=== PATIENT | female | born 1990 | race Caucasian/White ===

== ENCOUNTER 2024-01-30 12:12 | Inpatient (IN) | payer OTHER ==
[2024-01-30] MEDS: LACTATED RINGERS 1,000 ML IV SCH (15:59)
--- NOTE | 2024-01-30 16:12 | P.HPOB ---
History of Present Illness H&P Date: 01/30/24 Chief Complaint: preeclampsia withouth severe features Ms. Smith is a 33 year old at 39 weeks and 1 day with EDC of 02/05/24 by LMP c/w 10 week US who was sent from the office with elevated blood pressure. She has been followed outpatient for elevated blood pressures at her 36 and 37 week appointments. She has also been undergoing weekly surveillance with non- stress tests. Today in the office her pressure was 140/80. PIH labs in triage were within normal limits except a urine protein to creatinine ratio of 0.5. The fetus is estimated to be 8 lbs (65%ile) based on a 36 week US. work-up: blood type O positive, antibody negative, rubella immune, VDRL non-reactive, HBsAg negative, HIV negative, HCV Ab non-reactive, gonorrhea negative, chlamydia negative, 1 hour GTt wnl, GBS negative. Past Medical History Past Medical History: No Reported History History of Any Multi-Drug Resistant Organisms: None Reported Additional Past Surgical History / Comment(s): [place] teeth Past Anesthesia/Blood Transfusion Reactions: No Reported Reaction Past Psychological History: No Psychological Hx Reported Smoking Status: Never smoker - Past Family History Father Family Medical History: No Reported History Medications and Allergies Home Medications Medication Instructions Recorded Confirmed Type No Known Home Medications 01/30/24 01/30/24 History Allergies Allergy/AdvReac Type Severity Reaction Status Date / Time No Known Allergies Allergy Verified 01/30/24 12:27 Exam Vital Signs Temp Pulse Resp BP 01/30/24 15:43 96.9 F L 100 16 143/83 Intake and Output 01/30/24 01/30/24 01/30/24 06:59 14:59 22:59 Other: Weight 82.554 kg 82.554 kg Focused physical exam is performed. This is a healthy-appearing in no apparent distress. Breathing is non-labored. Abdomen is gravid and non-tender. Cervical exam is closed/long/high per repair servicer. Extremities non-tender and have trace edema. heart tones are reactive and reassuring. Assessment and Plan Assessment: 33 year old at 39 weeks and 1 day with pre-eclampsia without severe features Plan: Admit, plan for cooks catheter overnight with low dose oxytocin, clear liquid diet, continuous EFM and tocometer. Pre-E w/o SF - monitor BPs.
[2024-01-30] MEDS: OXYTOCIN 30 UNITS/500 ML NS 30 UNIT in SALINE 1 500ML.BAG IV SCH (16:36)
[2024-01-30 16:51] LABS: ALT 17 U/L (4-34); AST 25 U/L (14-36); African American GFR (CKD) >90 (>60 ml/min/1.73 sqM); Blood Urea Nitrogen 11 mg/dL (7-17); Non-African American GFR(CKD) >90 (>60 ml/min/1.73 sqM); Uric Acid 4.3 mg/dL (3.7-7.4)
[2024-01-30] MEDS: NALBUPHINE 10 MG/ML (10 ML MDV) IV PRN (23:04)
[2024-01-31] MEDS ORDERED: OXYTOCIN 10 UNIT/ML 1 ML VIAL IM PRN (08:58)
[2024-01-31] MEDS ORDERED: LIDOCAINE 0.5% (PF) 5 MG/ML (50 ML SDV) SQ PRN (08:58)
[2024-01-31] MEDS ORDERED: TERBUTALINE 1 MG/ML VIAL SQ PRN (08:58)
[2024-01-31] MEDS ORDERED: METHYLERGONOVINE 0.2 MG/ML 1 ML AMP IM PRN (08:58)
[2024-01-31] MEDS ORDERED: CARBOPROST TROMETHAMINE 250 MCG/ML 1 ML AMP IM PRN (08:58)
[2024-01-31] MEDS ORDERED: TRANEXAMIC 1,000 MG/100ML-NACL 1,000 MG in EMPTY BAG 1 BAG IV PRN (08:58)
[2024-01-31] MEDS ORDERED: miSOPROStoL 200 MCG TAB PO PRN (08:58)
[2024-01-31] MEDS: LACTATED RINGERS 1,000 ML IV SCH (13:31)
[2024-02-01] MEDS ORDERED: fentaNYL (PF) 50 MCG/ML 5 ML AMP ONE (04:08)
[2024-02-01] MEDS ORDERED: SODIUM CHLORIDE 0.9% 250 ML BAG ONE (04:08)
[2024-02-01] MEDS ORDERED: ROPIVACAINE 5 MG/ML 30 ML VIAL ONE (04:08)
[2024-02-01] MEDS: AMPICILLIN 2,000 MG in SODIUM CHLORIDE 0.9% 100 ML IVPB STA (05:14)
[2024-02-01] MEDS ORDERED: OXYTOCIN 10 UNIT/ML 1 ML VIAL IM PRN (08:54)
[2024-02-01] MEDS ORDERED: CARBOPROST TROMETHAMINE 250 MCG/ML 1 ML AMP IM PRN (08:54)
[2024-02-01] MEDS ORDERED: METHYLERGONOVINE 0.2 MG/ML 1 ML AMP IM PRN (08:54)
[2024-02-01] MEDS ORDERED: TRANEXAMIC 1,000 MG/100ML-NACL 1,000 MG in EMPTY BAG 1 BAG IV PRN (08:54)
[2024-02-01] MEDS ORDERED: miSOPROStoL 200 MCG TAB PO PRN (08:54)
[2024-02-01] MEDS ORDERED: OXYTOCIN 30 UNITS/500 ML NS 30 UNIT in SALINE 1 500ML.BAG IV SCH ×2 (09:00→10:30)
[2024-02-01] MEDS: CITRIC ACID-SODIUM CITRATE 15 ML CUP PO ONE (09:24)
[2024-02-01] MEDS ORDERED: ONDANSETRON 4 MG/2 ML VIAL ONE (09:50)
[2024-02-01] MEDS ORDERED: OXYTOCIN 10 UNIT/ML 1 ML VIAL ONE (09:50)
[2024-02-01] MEDS ORDERED: MORPHINE SULFATE (PF) 0.3 MG/0.3 ML SYR ONE (09:50)
[2024-02-01] MEDS ORDERED: CARBOPROST TROMETHAMINE 250 MCG/ML 1 ML AMP IM ONE (09:50)
[2024-02-01] MEDS ORDERED: NALOXONE 0.4 MG/ML 1 ML VIAL IV PRN (10:24)
[2024-02-01] MEDS ORDERED: diphenhydrAMINE 50 MG CAP PO PRN (10:24)
[2024-02-01] MEDS ORDERED: METOCLOPRAMIDE 5 MG/ML 2 ML VIAL IVP PRN (10:24)
[2024-02-01] MEDS ORDERED: diphenhydrAMINE 50 MG/ML 1 ML VIAL IVP PRN ×2 (10:24)
[2024-02-01] MEDS ORDERED: ONDANSETRON 4 MG/2 ML VIAL IVP PRN (10:24)
[2024-02-01] MEDS ORDERED: diphenhydrAMINE 25 MG CAP PO PRN (10:24)
[2024-02-01] MEDS ORDERED: ZOLPIDEM 5 MG TAB PO PRN (10:24)
[2024-02-01] MEDS ORDERED: LANOLIN CREAM 1 GM TUBE TOPICAL PRN (10:24)
[2024-02-01] MEDS ORDERED: SIMETHICONE 80 MG CHEWABLE PO PRN (10:24)
--- NOTE | 2024-02-01 10:36 | P.OP ---
Date of Procedure: 02/01/24 Preoperative Diagnosis: 1. at 39 weeks 2 days 2. arrest of first stage labor 3. maternal temp 4. category II heart tones Postoperative Diagnosis: same Procedure(s) Performed: primary low transverse Anesthesia: epidural Surgeon: Rose Arrington Family Lawyer #1: Saundra Crenshaw Estimated Blood Loss (ml): 500 IV fluids (ml): 500 Urine output (ml): 150 Pathology: other (placenta) Condition: stable Disposition: floor Indications for Procedure: This 33-year-old presented at 39 weeks with some elevated blood pressures increased PCR. Please see dictated H&P for full details. Tractor-trailer had put in a YOOWALK catheter. She signed out the patient to me on 517 2 PM. At that point patient was 4 cm dilated, 70% effaced, -3 station. Her water had been broken at 10:47 AM and clear fluid noted. Pitocin augmentation was continued throughout the day and night. Position changes were done. Patient was uncomfortable around 4 AM and did get an epidural on 02/01/2024. By around 9 AM heart tones have been category 2 for over an hour and Category II FHT managed following algorithm including initiation of corrective measure stopping pitocin, position changes and iv fluids. With the persistent presence of minimal variability and occasional decels, a patient-centered huddle was held and the need for an expedited deliver was discussed with the patient. It is our clinical recommendation to proceed with the delivery and after questions were answered to the patient agrees to proceed with the recommended plan. Pt was still 4-5 cm dilated and had been for the last 20 hours. Operative Findings: viable Female, Apgars 7, 9, weight 7 lbs. 4 oz. Description of Procedure: Patient was taken to the operating room where spinal anesthesia was found be adequate. She was prepped and draped in normal sterile fashion in dorsal supine position with a leftward tilt. Pfannenstiel skin incision was made the scalpel and carried through to the underlying layer of fascia with the scalpel. Fascia was incised in midline and carried bilaterally with the Graf scissors. The superior aspect of the fascial incision was grasped with Sanborn clamps elevated and the underlying rectus muscles dissected off with the Graf's. Attention was then turned to inferior aspect of same incision which in a similar fashion was grasped tented up and the underlying rectus muscles dissected off with the Graf's. The rectus muscles were the midline and the peritoneum was identified tented up and entered sharply with the scalpel. The incision was extended superiorly and inferiorly with good visualization of the bladder. The bladder blade was inserted and the bladder was found to be low. A low transverse incision was then made on the uterus with the scalpel. This was carried bilaterally and digital manner. 's head delivered atraumatically, nose and mouth bulb suctioned, cord clamped and cut, handed off to [facility] nurses. Apgars 7,9, weight 7 lbs. 4 oz. Placenta delivered manually, intact with three-vessel cord. The uterus is exteriorized and cleared of all clots and debris. The uterine incision was closed with 0 Vicryl in a running locked fashion. Second layer of the same sutures used in imbricating fashion to obtain excellent hemostasis. Both ovaries and tubes appeared normal. The uterus was placed back into the abdomen. The peritoneum was reapproximated using 2-0 Vicryl in a running fashion. The muscles were reapproximated using 2- 0 Vicryl in interrupted fashion. The fascia was reapproximated using 0 Vicryl in a running fashion. The subcutaneous tissues closed with 3-0 Vicryl running fashion. The skin was closed anna. Patient tolerated the procedure well, sponge and instrument counts were correct times 2 and she was taken to the recovery room in stable condition.
[2024-02-01] MEDS: ACETAMINOPHEN IV (For NPO) 1,000 MG in EMPTY BAG 1 BAG IVPB STA (11:21)
[2024-02-01] MEDS: KETOROLAC 15 MG/ML 1 ML VIAL IVP SCH (17:44)
[2024-02-01] MEDS: IBUPROFEN 600 MG TAB PO SCH (19:31)
[2024-02-01] MEDS: ACETAMINOPHEN TAB 500 MG TAB PO SCH (21:11)
[2024-02-01] MEDS: SENNOSIDES-DOCUSATE SODIUM 1 EACH TAB PO SCH (21:13)
[2024-02-02 04:46] LABS: Basophils % (A) 0 %; Eosinophils % (A) 0 %; HCT 27.9 % (34.0-46.0); HGB 8.7 gm/dL (11.4-16.0); Lymphocytes # (A) 0.9 k/uL (1.0-4.8); Lymphocytes % (A) 6 %; MCH 27.5 pg (25.0-35.0); MCHC 31.2 g/dL (31.0-37.0); MCV 88.4 fL (80.0-100.0); Mean Platelet Volume 9.1; Monocytes # (A) 0.7 k/uL (0-1.0); Monocytes % (A) 4 %; Neutrophils # (A) 12.9 k/uL (1.3-7.7); Neutrophils % (A) 88 %; Platelet Count 230 k/uL (150-450); RBC 3.16 m/uL (3.80-5.40); RDW 14.2 % (11.5-15.5); WBC 14.7 k/uL (3.8-10.6)
--- NOTE | 2024-02-02 10:54 | P.PNOBGPC ---
Subjective - Subjective Principal diagnosis: S/P 1*LTCS POD #1 Interval history: PT seen and examined. Denies N/V, F/C, CP, SOB or calf pain. Patient reports: Reports appetite normal, Reports voiding normally, Reports pain well controlled, Reports ambulating normally [place]: doing well Objective - Vital Signs Latest vital signs: Vital Signs Temp Pulse Resp BP BP Pulse Ox 02/02/24 03:41 98.0 F 102 H 16 103/63 97 02/02/24 00:00 98.3 F 105 H 16 103/72 97 02/01/24 20:27 98.4 F 88 18 116/74 97 02/01/24 14:45 98.3 F 92 16 119/62 02/01/24 12:45 98.5 F 114 H 16 119/59 02/01/24 12:30 98.5 F 112 H 16 118/62 02/01/24 12:15 98.0 F 101 H 16 118/60 02/01/24 12:00 98.9 F 100 16 116/58 02/01/24 11:45 98.7 F 112 H 16 116/58 02/01/24 11:30 98.3 F 112 H 16 116/58 02/01/24 11:15 98.9 F 108 H 16 134/69 02/01/24 11:00 98.7 F 110 H 16 134/69 Intake and Output 02/01/24 02/02/24 02/02/24 22:59 06:59 14:59 Intake Total 500 Output Total 900 900 600 Balance -400 -900 -600 Intake: Oral 500 Output: Urine 900 900 600 - Exam Lungs: bilateral: normal Chest: Normal S1, Normal S2 Extremities: Present: normal Abdomen: Present: normal appearance, soft. Absent: distention, tenderness Incision: Present: normal, dry, intact Uterus: Present: normal, firm - Labs Labs: Abnormal Lab Results - Last 24 Hours (Table) 02/02/24 Range/Units 04:26 WBC 14.7 H (3.8-10.6) k/uL RBC 3.16 L (3.80-5.40) m/uL Hgb 8.7 L (11.4-16.0) gm/dL Hct 27.9 L (34.0-46.0) % Neutrophils # 12.9 H (1.3-7.7) k/uL Lymphocytes # 0.9 L (1.0-4.8) k/uL Assessment and Plan (1) Status post primary low transverse section Current Visit: Yes Status: Acute Code(s): Z98.891 - HISTORY OF UTERINE SCAR FROM PREVIOUS SURGERY SNOMED Code(s): 460783352 Plan: 1. cont po care
[2024-02-02] MEDS: TRIAMCINOLONE 0.1% CREAM 80 GM TUBE TOPICAL PRN (10:58)
[2024-02-02] MEDS: AMPICILLIN 1,000 MG in SODIUM CHLORIDE 0.9% 50 ML IVPB SCH (18:23)
--- NOTE | 2024-02-03 08:43 | P.DS ---
Providers Date of admission: 01/30/24 15:25 Expected date of discharge: 02/03/24 Attending physician: Sebastien Tejada Primary care physician: Stated None - Discharge Diagnosis(es) (1) Status post primary low transverse section Current Visit: Yes Status: Acute Hospital Course: Patient presented with some elevated blood pressures and high PCR. She u nderwent an induction of labor with a vertex catheter. After 20 hours of being ruptured and with Pitocin section was called for tachycardia, maternal temp, arrest of dilation, category 2 heart tones. She underwent this procedure without complication. Postoperative course was uneventful. Blood pressures came down and are normal.She denies nausea, vomiting, chest pain, shortness of breath or calf pain. Patient will be discharged home day #2 in stable condition to follow-up with Dr. Efrain Chatterjee in 2 weeks. Plan - Discharge Summary New Discharge Prescriptions: No Action No Known Home Medications Discharge Medication List No Known Home Medications 01/30/24 [History] Follow up Appointment(s)/Referral(s): Sebastien Tejada MD [STAFF PHYSICIAN] - 03/12/24 9:15 am Discharge Disposition: HOME SELF-CARE
[2024-02-03 09:08] VITALS: BP 131/70; PULSE 99; RESP 17; TEMP 98
--- NOTE | 2024-02-03 10:34 | P.PN ---
Progress Note - Text 02/02/24 1131 33-year-old female status post , she received Duramorph for the epidural. Patient seen and evaluated for postop pain control, she has a VAS of 2 with no complaints of nausea vomiting or pruritus
== END 2024-02-03 14:25 | disposition home or self-care (01) | DRG 540 ==
LOC: FBPOP 12:12 → 4FBP 15:25
PROVIDERS: ADMIT Obstetrics & Gynecology; ATTEND Obstetrics & Gynecology
PROC: 3E033VJ Introduction of Other Hormone into Peripheral Vein, Percutaneous Approach (ICD-10-PCS; 2024-01-30)
PROC: 10H07YZ Insertion of Other Device into Products of Conception, Via Natural or Artificial Opening (ICD-10-PCS; 2024-01-30)
PROC: 10D00Z1 Extraction of Products of Conception, Low, Open Approach (ICD-10-PCS; principal; 2024-02-01 10:00)
DX: O14.04 Mild to moderate pre-eclampsia, complicating childbirth (principal); O62.0 Primary inadequate contractions; O76 Abnormality in fetal heart rate and rhythm complicating labor and delivery; O75.2 Pyrexia during labor, not elsewhere classified; Z3A.39 39 weeks gestation of pregnancy; Z37.0 Single live birth; Z28.310 Unvaccinated for COVID-19; Z28.21 Immunization not carried out because of patient refusal
CPT/HCPCS: 59025; 82565; 84450; 84460; 84520; 84550; 85025; 86850; 86900; 86901; 99215

== ENCOUNTER → 2024-01-30 | Outpatient (CLI) | payer OTHER ==
[2024-01-30 13:12] LABS: Protein/Creatinine Ratio,Urine 0.526
[2024-01-30 14:26] LABS: HCT 35.4 % (37.2-46.3); HGB 11.6 g/dL (12.0-15.0); MCH 28.8 pg (27.0-32.0); MCHC 32.8 g/dL (32.0-37.0); MCV 87.8 FL (80.0-97.0); Mean Platelet Volume 10.5 FL (9.5-12.2); NRBC Per 100 WBC 0 X 10*3/uL (0.00-0.01); Platelet Count 265 X 10*3/uL (140-440); RBC 4.03 X 10*6/uL (4.10-5.20); RDW 13.7 % (11.5-14.5); WBC 10.81 X 10*3/uL (4.50-10.00)
[2024-01-30 15:11] LABS: INR 0.8 (<1.2); Partial Thromboplastin Time 23.4 sec (22.0-30.0); Prothrombin Time 9.3 sec (10.0-12.5)
[2024-01-30 15:15] LABS: ALT 15 U/L (8-44); AST 23 U/L (13-35); Blood Urea Nitrogen 10.9 mg/dL (9.0-27.0); Uric Acid 3.9 mg/dL (2.9-7.7)
[2024-01-30 15:58] LABS: Appearance,Urine Clear (Clear); Bilirubin,Urine Negative (Negative); Blood,Urine Negative (Negative); Color,Urine Yellow (Yellow); Ketones,Urine Negative (Negative); Nitrite,Urine Negative (Negative); PH, Urine 7.5; Specific Gravity,Urine 1.006 (1.001-1.030); Urobilinogen,Urine 0.2 E.U./DL
== END | disposition home or self-care (01) ==
LOC: LABWHC1 11:22
PROVIDERS: ATTEND Obstetrics & Gynecology
DX: O13.9 Gestational [pregnancy-induced] hypertension without significant proteinuria, unspecified trimester (principal)
CPT/HCPCS: 36415; 81003; 82565; 82570; 84156; 84450; 84460; 84520; 84550; 85027; 85384; 85610; 85730